=== PATIENT | female | born 1985 | race American Indian/Alaskan Native ===

== ENCOUNTER 2017-06-04 10:25 | Outpatient (CLI) | payer MEDICAID | END 2017-06-04 12:08 | disposition home or self-care (01) | LOC: LABHHL 10:25 → TRG 10:25 → LABHHL 11:52 → EDSTATUS 11:55 → TRG 12:08 | PROVIDERS: ATTEND Obstetrics & Gynecology | DX: O36.0130 Maternal care for anti-D [Rh] antibodies, third trimester, not applicable or unspecified (principal); Z3A.28 28 weeks gestation of pregnancy | CPT/HCPCS: 86850; 86900; 86901; 96372; J2790 ==

== ENCOUNTER 2017-08-14 21:34 | Outpatient (CLI) | payer MEDICAID ==
[2017-08-14 22:17] VITALS: BP 99/55
== END 2017-08-15 01:39 | disposition home or self-care (01) ==
LOC: TRG 21:34
PROVIDERS: ATTEND Obstetrics & Gynecology
DX: O47.1 False labor at or after 37 completed weeks of gestation (principal); Z3A.38 38 weeks gestation of pregnancy
CPT/HCPCS: 59025

== ENCOUNTER 2017-08-16 02:22 | Inpatient (IN) | payer MEDICAID ==
[2017-08-16] MEDS ORDERED: LACTATED RINGERS 1,000 ML ONE (02:59)
[2017-08-16] MEDS ORDERED: STADOL IV PRN (03:32)
[2017-08-16 03:46] LABS: Hematocrit 34.9 % (30.3-42.9); Hemoglobin 11.6 gm/dl (10.1-14.3); Mean Corpuscular HGB Conc 33 % (30-34); Mean Corpuscular Hemoglobin 28 pg (28-32); Mean Corpuscular Volume 84 fl (79-97); Platelet Count 180 K/mm3 (140-440); Red Blood Count 4.15 M/mm3 (3.65-5.03); Red Cell Distribution Width 15.4 % (13.2-15.2)
[2017-08-16] MEDS: LACTATED RINGERS 1,000 ML IV SCH ×4 (03:56→09:16)
--- NOTE | 2017-08-16 07:17 | History and Physical Report ---
History of Present Illness Date of examination: 08/16/17 Date of admission: 08/16/17 03:33 Chief complaint: SIUP at 38 weeks and 4 days with contractions. History of present illness: Patient is a 32 year old , LMP 11/19/16, EDC 08/26/17 at 38 weeks and 4 days gestation who presented to the labor floor complaining of having contractions since 1 AM today. She complains of fluid leakage but denies any bleeding. She reported good movement. Past History Past Medical History: other (sickle cell trait, anemia) Past Surgical History: other (laparocopy with dermoid cystectomy, nasal septal repair) TAR CHASER History: chlamydia, other (dermoid cyst) Family/Genetic History: none Social history: no significant social history - Obstetrical History Expected Date of Delivery: 08/26/17 Actual Gestation: 38 Week(s) 4 Day(s) : 3 Para: 1 Spontaneous Abortions: 1 Number of Living Children: 1 Medications and Allergies Allergies Allergy/AdvReac Type Severity Reaction Status Date / Time No Known Allergies Allergy Unverified 06/04/17 12:07 Active Meds: Active Medications Butorphanol Tartrate (Stadol) 2 mg IV Q2H PRN PRN Reason: Labor Pain Last Admin: 08/16/17 03:58 Dose: 2 mg Lactated Ringer's (Lactated Ringers) 1,000 mls @ 125 mls/hr IV DIRECT DEVEN Last Admin: 08/16/17 03:57 Dose: 125 mls/hr - Vital Signs Vital signs: Vital Signs Pulse BP Pulse Ox 91 H 114/69 97 08/16/17 02:42 08/16/17 02:42 08/16/17 02:42 Temp Pulse Resp BP Pulse Ox 97.9 F 73 20 127/66 100 08/16/17 02:54 08/16/17 03:51 08/16/17 02:54 08/16/17 03:51 08/16/17 03:32 - Physical Exam Cardiovascular: Normal S1, Normal S2 Lungs: Positive: Clear to auscultation Vulva: both: normal Uterus: Positive: enlarged Adnexa: both: normal Deep Tendon Reflex Grade: Normal +2 - Obstetrical FHR: category 1 Uterine Contraction Monitor Mode: External Cervical Dilatation: 4 Cervical Effacement Percentage: 70 station: -2 Uterine Contraction Pattern: Irregular Uterine Contraction Intensity: Moderate Results Result Diagrams: 08/16/17 03:18 Abnormal lab results 08/16/17 Range/Units 03:18 RDW 15.4 H (13.2-15.2) % All other labs normal. Assessment and Plan - Patient Problems (1) 38 weeks gestation of Current Visit: Yes Status: Acute (2) Active labor Current Visit: Yes Status: Acute Plan to address problem: Admit to floor. Routine admitting labs. IV fluid. and toco monitoring. Anticipate . (3) Sickle cell trait Current Visit: Yes Status: Acute (4) Anemia Current Visit: Yes Status: Acute Qualifiers: Anemia type: iron deficiency
[2017-08-16] MEDS ORDERED: ePHEDrine SULFATE IV PRN ×2 (07:30→08:25)
--- NOTE | 2017-08-16 08:24 | Anesthesia Consultation ---
Anesthesia Consult and Med Hx Date of service: 08/16/17 - Airway Anesthetic Teeth Evaluation: Good ROM Head & Neck: Adequate Mental/Hyoid Distance: Adequate Mallampati Class: Class II Intubation Access Assessment: Probably Good - Pre-Operative Health Status ASA Pre-Surgery Classification: ASA2 Proposed Anesthetic Plan: Epidural, Spinal - Pulmonary Hx Asthma: No - Cardiovascular System Hx Hypertension: No - Central Nervous System Hx Seizures: No Hx Psychiatric Problems: No - Endocrine Hx Renal Disease: No Hx Hypothyroidism: No Hx Hyperthyroidism: No - Hematic Hx Anemia: Yes Hx Sickle Cell Disease: No - Other Systems Hx Alcohol Use: No
[2017-08-16] MEDS ORDERED: NARCAN 2 MG/2 ML IV PRN (08:25)
[2017-08-16] MEDS ORDERED: fentaNYL-BUPIV 2 MCG/ML-0.125% 200 MCG/100 ML BAG EPIDURAL SCH (09:00)
--- NOTE | 2017-08-16 09:16 | Progress Note ---
Assessment and Plan - Patient Problems (1) 38 weeks gestation of Current Visit: Yes Status: Acute (2) Active labor Current Visit: Yes Status: Acute Plan to address problem: Continue routine labor orders Anticipate vaginal delivery (3) Rh negative status during , third trimester, single gestation Current Visit: Yes Status: Acute Plan to address problem: RhoGam Subjective - Subjective Date of service: 08/16/17 Principal diagnosis: IUP @ 38w4d, Active Labor Patient reports: movement normal, other (pain well controlled s/p epidural anesthesia) Objective - Vital Signs Vital Signs: Vital Signs - 12hr 08/16/17 08/16/17 08/16/17 02:42 02:47 02:52 Temperature Pulse Rate 91 H 90 78 Respiratory Rate Blood Pressure 114/69 O2 Sat by Pulse 97 98 100 Oximetry 08/16/17 08/16/17 08/16/17 02:54 02:57 03:02 Temperature 97.9 F Pulse Rate 91 H 84 Respiratory 20 Rate Blood Pressure O2 Sat by Pulse 100 100 Oximetry 08/16/17 08/16/17 08/16/17 03:07 03:12 03:17 Temperature Pulse Rate 88 79 84 Respiratory Rate Blood Pressure O2 Sat by Pulse 100 100 100 Oximetry 08/16/17 08/16/17 08/16/17 03:22 03:27 03:32 Temperature Pulse Rate 76 83 80 Respiratory Rate Blood Pressure O2 Sat by Pulse 100 100 100 Oximetry 08/16/17 08/16/17 08/16/17 03:51 07:00 08:33 Temperature 98.1 F Pulse Rate 73 94 H Respiratory 18 Rate Blood Pressure 127/66 O2 Sat by Pulse 100 Oximetry 08/16/17 08/16/17 08/16/17 08:38 08:42 08:43 Temperature Pulse Rate 76 60 78 Respiratory Rate Blood Pressure O2 Sat by Pulse 100 82 L 76 L Oximetry 08/16/17 08/16/17 08/16/17 08:44 08:46 08:48 Temperature Pulse Rate 71 83 69 Respiratory Rate Blood Pressure 125/78 101/63 103/65 O2 Sat by Pulse 99 Oximetry 08/16/17 08/16/17 08/16/17 08:50 08:52 08:53 Temperature Pulse Rate 76 80 74 Respiratory Rate Blood Pressure 101/68 102/59 O2 Sat by Pulse 99 Oximetry 0408/16/17 08/16/17 08:54 08:56 08:58 Temperature Pulse Rate 70 85 77 Respiratory Rate Blood Pressure 105/60 101/61 O2 Sat by Pulse 100 Oximetry 08/16/17 08/16/17 08/16/17 09:03 09:08 09:13 Temperature Pulse Rate 86 68 85 Respiratory Rate Blood Pressure O2 Sat by Pulse 99 99 100 Oximetry - Exam Cardiovascular: Regular rate, Normal S1, Normal S2 Lungs: Clear to auscultation, Normal air movement FHR: category 2 FHR comments: baseline 130, minimal variability, + accels, early and late decels Uterine Contraction Monitor Mode: External Cervical Dilatation: 7 (per RN) Cervical Effacement Percentage: 100 (per RN) station: 0 (per RN) Uterine Contraction Frequency (min): 2-4 Uterine Contraction Pattern: Regular - Labs Labs: Abnormal Labs 08/16/17 03:18 RDW 15.4 H Laboratory Results - last 24 hr 08/16/17 08/16/17 08/16/17 03:18 03:18 03:53 WBC 6.3 RBC 4.15 Hgb 11.6 Hct 34.9 MCV 84 MCH 28 MCHC 33 RDW 15.4 H Plt Count 180 Hep Bs Antigen Non-reactive Blood Type A NEGATIVE Antibody Screen Negative
[2017-08-16] MEDS ORDERED: PITOCin/NS 20 UNIT/1000ML DRIP 20,000 MILLIUNITS/1,000 ML BAG IV ONE (09:51)
--- NOTE | 2017-08-16 12:28 | Procedure Note ---
OB Delivery Note - Delivery Date of Delivery: 08/16/17 (11:48) Surgeon: CHARLES MILLER (CATY) Estimated blood loss: <100cc - Vaginal Delivery presentation: vertex Delivery position: OA Intrapartum events: meconium (terminal), mult.variable deceleratio Delivery induction: none Delivery augmentation: rupture of membranes (AROM) Delivery monitor: external FHT, external uterine Route of delivery: Delivery placenta: spontaneous (11:52) Delivery cord: 3 umbilical vessels Episiotomy: none Delivery laceration: 1st degree, vaginal side wall Delivery repair: vicryl (3-0 on SH) Anesthesia: epidural Delivery comments: of a vigorous term 7 lbs 1 oz male at 11:48. Baby bulb-suctioned and placed [id number] on maternal abdomen. After 3 mins, umbilical cord double- clamped by CATY Miller and cut by FOB. Cord blood collected. Placenta spontaneously delivered, Maritza-side presenting @ 11:52. Scant lochia present. Fundal massage and IV pitocin bolus initiated. Fundus F/ML/U. 1st degree right vaginal side-wall laceration noted and repaired with two intermittent stitches using a 3-0 vicryl needle. Pt tolerated the procedure well. Placenta intact; was discarded. Mom and baby in stable condition. - Infant A at 1 minute: 8 at 5 minutes: 9 Gender: Male (7 lbs 1 oz (3199 gm); 18.5 in)
[2017-08-16] MEDS ORDERED: PHENERGAN PO PRN (12:30)
[2017-08-16] MEDS ORDERED: LANSINOH TP PRN (12:30)
[2017-08-16] MEDS ORDERED: BENADRYL PO PRN (12:30)
[2017-08-16] MEDS ORDERED: ZOFRAN IV PRN (12:30)
[2017-08-16] MEDS ORDERED: PHENERGAN PR PRN (12:30)
[2017-08-16] MEDS ORDERED: NORCO 5/325 PO PRN (12:30)
[2017-08-16] MEDS ORDERED: TYLENOL PO PRN (12:30)
[2017-08-16] MEDS ORDERED: TUCKS PAD TP PRN (12:30)
[2017-08-16] MEDS ORDERED: PITOCin/NS 20 UNIT/1000ML DRIP 20 UNITS/1,000 ML BAG IV SCH (13:00)
[2017-08-16] MEDS ORDERED: SODIUM CHLORIDE FLUSH SYRINGE 10 ML IV PRN (13:00)
[2017-08-16] MEDS: MOTRIN PO SCH (19:58)
[2017-08-16] MEDS ORDERED: MILK OF MAGNESIA PO PRN (22:00)
[2017-08-16] MEDS ORDERED: DULCOLAX PR PRN (22:00)
[2017-08-17 00:49] LABS: Hematocrit 32.3 % (30.3-42.9); Hemoglobin 10.6 gm/dl (10.1-14.3)
[2017-08-17] MEDS: MOTRIN PO SCH ×2 (01:53→12:33)
[2017-08-17] MEDS ORDERED: PRENATAL VITAMIN PO SCH (10:00)
--- NOTE | 2017-08-17 10:14 | Progress Note ---
Assessment and Plan A: PPD#1 s/p Stable P: Continue PP care Desires discharge home today Subjective - Subjective Date of service: 08/17/17 Principal diagnosis: Patient reports: appetite normal, voiding normally, pain well controlled, ambulating normally [place]: doing well, other (Both breast/Bottle) Objective - Vital Signs Latest vital signs: Vital Signs Temp Pulse Resp BP Pulse Ox 08/17/17 08:07 98.5 F 61 18 109/58 99 08/17/17 02:53 20 08/17/17 01:53 20 08/17/17 00:59 98.0 F 64 20 101/50 100 08/16/17 21:40 98.5 F 86 20 119/70 97 08/16/17 20:58 18 08/16/17 19:58 20 08/16/17 18:33 97.8 F 77 18 115/69 99 08/16/17 13:28 84 128/67 08/16/17 13:12 83 109/58 08/16/17 12:57 83 116/56 08/16/17 12:42 82 124/60 08/16/17 12:27 83 115/56 08/16/17 12:23 77 111/53 08/16/17 12:12 86 110/61 08/16/17 11:57 84 108/58 08/16/17 11:42 77 115/68 08/16/17 11:28 80 111/69 97 08/16/17 11:23 94 H 16 97 08/16/17 11:18 77 99 08/16/17 11:14 78 106/66 08/16/17 11:13 65 99 08/16/17 11:08 80 99 08/16/17 11:03 68 99 08/16/17 11:00 98.6 F 16 08/16/17 10:58 71 99 08/16/17 10:57 80 111/65 08/16/17 10:55 78 94 08/16/17 10:53 72 96 08/16/17 10:48 74 95 08/16/17 10:43 68 96 08/16/17 10:42 68 109/64 08/16/17 10:38 68 97 08/16/17 10:35 76 94 08/16/17 10:33 69 96 04/09/18 10:30 71 94 08/16/17 10:28 72 96 08/16/17 10:23 63 97 08/16/17 10:18 68 97 Intake and Output 08/16/17 08/17/17 08/17/17 23:59 07:59 15:59 Intake Total 480 Balance 480 Intake: Intake, Free Water 480 Other: # Voids Indwelling Catheter 1 Void 1 - Exam Breasts: Present: normal Cardiovascular: Present: Regular rate, Normal S1, Normal S2 Lungs: Present: Clear to auscultation, Normal air movement Abdomen: Present: normal appearance, soft, normal bowel sounds Vulva: both: normal Uterus: Present: firm, fundal height below umbilicus (-1) Extremities: Present: normal Deep Tendon Reflex Grade: Normal +2
--- NOTE | 2017-08-17 10:17 | Discharge Summary ---
Providers - Providers Date of Admission: 08/16/17 03:33 Date of discharge: 08/17/17 Attending physician: DARRIAN BROWN MD Primary care physician: DARRIAN BROWN MD Hospitalization Reason for admission: active labor, IUP at term Delivery: Procedure details: See H&P and delivery note Episiotomy: none Laceration: vaginal side wall (Right) Other procedures: none complications: none Discharge diagnosis: IUP at term delivered baby: male Condition at discharge: Good Disposition: DC-01 TO HOME OR SELFCARE Plan - Provider Discharge Summary Activity: routine, no sex for 6 weeks, no heavy lifting 4 weeks, no strenuous exercise Diet: routine Instructions: routine Additional instructions: [] Smoking cessation referral if applicable(refer to patient education folder for contact #) [] Refer to [facility] Booklet Call your doctor immediately for: * Fever > 100.5 * Heavy vaginal bleeding ( >1 pad per hour) * Severe persistent headache * Shortness of breath * Reddened, hot, painful area to leg or breast * Drainage or odor from incision. * Keep incision clean and dry at all times and follow doctor's instructions regarding bathing/showering - Follow up plan Follow up: DARRIAN BROWN MD [Primary Care Provider] - 6 Weeks
[2017-08-17 15:21] VITALS: BP 131/73
== END 2017-08-17 15:30 | disposition home or self-care (01) | DRG 775 ==
LOC: TRG 02:22 → LD 03:33 → OB 15:42
PROVIDERS: ADMIT Obstetrics & Gynecology; ATTEND Obstetrics & Gynecology
PROC: 10E0XZZ Delivery of Products of Conception, External Approach (ICD-10-PCS; principal; 2017-08-16)
PROC: 10907ZC Drainage of Amniotic Fluid, Therapeutic from Products of Conception, Via Natural or Artificial Opening (ICD-10-PCS; 2017-08-16)
PROC: 0HQ9XZZ Repair Perineum Skin, External Approach (ICD-10-PCS; 2017-08-16)
PROC: 3E0R3BZ Introduction of Anesthetic Agent into Spinal Canal, Percutaneous Approach (ICD-10-PCS; 2017-08-16)
PROC: 3E0334Z Introduction of Serum, Toxoid and Vaccine into Peripheral Vein, Percutaneous Approach (ICD-10-PCS; 2017-08-16)
PROC: 00HU33Z Insertion of Infusion Device into Spinal Canal, Percutaneous Approach (ICD-10-PCS; 2017-08-16)
DX: O76 Abnormality in fetal heart rate and rhythm complicating labor and delivery (principal); O99.02 Anemia complicating childbirth; Z3A.38 38 weeks gestation of pregnancy; Z37.0 Single live birth; D57.3 Sickle-cell trait; O77.0 Labor and delivery complicated by meconium in amniotic fluid; O70.0 First degree perineal laceration during delivery; O36.0930 Maternal care for other rhesus isoimmunization, third trimester, not applicable or unspecified
CPT/HCPCS: 36415; 85014; 85018; 85027; 85461; 86592; 86706; 86850; 86900; 86901; 99211; G0463; J0595; J2590; J7120

== ENCOUNTER 2017-10-18 09:54 | Day surgery (SDC) | payer OTHER, MEDICAID ==
[~2017-10-18 09:54] MED LIST: LACTATED RINGERS 1,000 ML IV SCH; VERSED IV NR
[2017-10-18] MEDS ORDERED: NACL BACTERIOSTATIC INFILTRATI ONE (11:09)
--- NOTE | 2017-10-18 11:10 | Anesthesia Consultation ---
Anesthesia Consult and Med Hx - Airway Anesthetic Teeth Evaluation: Good ROM Head & Neck: Adequate Mental/Hyoid Distance: Adequate Mallampati Class: Class II - Pulmonary Exam CTA: Yes - Cardiac Exam Cardiac Exam: RRR - Pre-Operative Health Status ASA Pre-Surgery Classification: ASA2 Proposed Anesthetic Plan: General - Pulmonary Hx Asthma: No - Cardiovascular System Hx Hypertension: No - Central Nervous System Hx Seizures: No Hx Psychiatric Problems: No - Endocrine Hx Renal Disease: No Hx Hypothyroidism: No Hx Hyperthyroidism: No - Hematic Hx Anemia: Yes (Past hx) Hx Sickle Cell Disease: Yes (Trait only) - Other Systems Hx Alcohol Use: Yes (occas) Hx Cancer: No
[2017-10-18] MEDS ORDERED: ZOFRAN IV PRN (11:11)
[2017-10-18] MEDS ORDERED: DILAUDID IV PRN (11:11)
[2017-10-18] MEDS ORDERED: SUBLIMAZE IV PRN (11:11)
--- NOTE | 2017-10-18 11:11 | Anesthesia Day of Surgery ---
Anesthesia Day of Surgery - Day of Surgery Patient Examined: Yes Patient H&P Reviewed: Yes Patient is NPO: Yes
[2017-10-18] MEDS ORDERED: MARCAINE 0.5% 30 ML INFILTRATI ONE (11:13)
[2017-10-18] MEDS ORDERED: ZEMURON IV ONE (11:40)
[2017-10-18] MEDS ORDERED: XYLOCAINE MPF 2% ONE (11:40)
[2017-10-18] MEDS ORDERED: SUBLIMAZE ONE (11:40)
[2017-10-18] MEDS ORDERED: DIPRIVAN 10 MG/ML IV ONE (11:41)
[2017-10-18 11:44] LABS: Basophils % (Auto) 0.9 % (0.0-1.8); Eosinophils # (Auto) 0.3 K/mm3 (0.0-0.4); Eosinophils % (Auto) 4.8 % (0.0-4.3); Hematocrit 36.9 % (30.3-42.9); Hemoglobin 12.1 gm/dl (10.1-14.3); Lymphocytes # (Auto) 2.3 K/mm3 (1.2-5.4); Lymphocytes % (Auto) 41.7 % (13.4-35.0); Mean Corpuscular HGB Conc 33 % (30-34); Mean Corpuscular Hemoglobin 28 pg (28-32); Mean Corpuscular Volume 86 fl (79-97); Monocytes # (Auto) 0.3 K/mm3 (0.0-0.8); Monocytes % (Auto) 4.8 % (0.0-7.3); Platelet Count 222 K/mm3 (140-440); Red Blood Count 4.29 M/mm3 (3.65-5.03); Red Cell Distribution Width 15.3 % (13.2-15.2)
[2017-10-18] MEDS ORDERED: NACL 0.9% IR ONE (13:43)
[2017-10-18] MEDS ORDERED: MARCAINE 0.5% INFILTRATI ONE (13:43)
[2017-10-18] MEDS ORDERED: BLOXIVERZ ONE (14:00)
[2017-10-18] MEDS ORDERED: ZOFRAN ONE (14:00)
[2017-10-18] MEDS ORDERED: ROBINUL ONE (14:00)
[2017-10-18] MEDS ORDERED: TORADOL ONE (14:03)
[2017-10-18] MEDS ORDERED: DILAUDID ONE (14:03)
[2017-10-18 15:29] VITALS: BP 108/60
--- NOTE | 2017-10-19 17:53 | Operative Report ---
Operative Report Operative Report: Preoperative diagnosis: Multiparity, desires permanent sterilization. Postoperative diagnosis: same as preoperative diagnosis. Procedure: Laparoscopic tubal sterilization. Surgeon: Dr. Oquendo Engraver Steel Plate: none Anesthesia: general IVF: RL 1 liter EBL: < 10 cc Complications: none Procedure details: Risks, benefits, and alternatives of the procedure were discussed in detail with the patient which included but not limited to the risks of infect, hemorrhage requiring blood transfusion, injury to the bowel, bladder and blood vessels. She expressed understanding, her questions were answered, she gave her informed consent. The patient was taken to the operating room with an IV fluid infusing ringers lactate. In the operating room, she was placed in the dorsal supine position and given general anesthesia. Then, she was placed on the stirrups in a dorsolithotomy position. The perineum, vagina and cervix and the abdomen were washed and she was prepared and draped in the usual sterile fashion. The bladder was emptied using a straight catheter. Examination under anesthesia revealed normal external genitalia, vagina, and cervix, no bleeding or gross lesions seen. The uterus sounded 8 week size, mobile, anteverted. The adnexa were nonpalpable. Weighted speculum was placed on the posterior vaginal wall. The anterior lip of the cervix was grasped with a single-tooth tenaculum. The cervical os was dilated and a HUMI uterine manipulator was was introduced into the uterine cavity as a means of manipulating the uterus during the procedure. The speculum and tenaculum were removed from the vagina and cervix. Attention was then turned to the abdomen where a 5 mm skin incision was made in the umbilical fold. The Veress needle was introduced into the peritoneal cavity at a 45 angle while tenting the abdominal wall. Intraperitoneal placement was confirmed by using a water-filled syringe and by noticing a drop in intra-abdominal pressure while CO2 gas was being insufflated. The 5 mm trocar and sleeves were then advanced without difficulty into the abdomen where intraperitoneal placement was confirmed using the laparoscope. Pneumoperitoneum was achieved weight 3.5 L of CO2 gas. A second 5 mm skin incision was made in the left lower quadrant and a second trocar and sleeve were then advanced into the abdomen or cavity under direct visualization with the laparoscope. A quick survey of the patient's pelvis and abdomen revealed normal uterus, fallopian tubes ,and ovaries bilaterally. There was some adhesions of the bowel and omentum to the left pelvic sidewall. The left fallopian tube was grasped with forceps and it was cauterized with bipolar cautery, then transected using Endo scissor. A similar procedure was done with the right fallopian tube which was grasped with forceps and cauterized using a bipolar cautery then transected wth Endo scissor. After confirming adequate hemostasis, the trocar ports were open to release the CO2 gas and the instruments were removed from the abdomen. The trocar sites were closed using stitches of 0 Vicryl sutures and Steri-Strips were placed. The counts of laps, needles, sponges, and instruments were correct 2. The patient tolerated the procedure well. She was awakened from the anesthesia and taken to the overwhelming in stable condition.
== END 2017-10-18 15:38 | disposition home or self-care (01) ==
LOC: OR 09:54
PROVIDERS: ATTEND Obstetrics & Gynecology
DX: Z30.2 Encounter for sterilization (principal); D57.3 Sickle-cell trait; Z98.890 Other specified postprocedural states
CPT/HCPCS: 36415; 58670; 81025; 85025; J1170; J1885; J2250; J2405; J2704; J2710; J3010; J7120